=== PATIENT | female | born 1955 | race African-American/Black ===

== ENCOUNTER 2016-11-09 14:03 | Inpatient (IN) | payer OTHER ==
[~2016-11-09] VITALS: Ht 170.2 cm; Wt 88.0 kg
[~2016-11-09 14:03] MED LIST: ASPI81CT89 PO; ATOR20TA PO; ISOS10TA9 PO; METO25TA PO; NITR0.4T2 SL; ORE25 PO; SIMV20TA1 PO
[2016-11-09 14:33] VITALS: BP 136/87
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
[2016-11-09] MEDS ORDERED: ONDANSETRON 4 MG/2 ML VIAL IVP ONE (15:25)
[2016-11-09] MEDS ORDERED: oxyCODONE/APAP 5/325 MG 1 TAB TAB PO ONE (15:25)
[2016-11-09] MEDS ORDERED: ASPIRIN 81 MG TAB.CHEW PO ONE (15:25)
[2016-11-09 16:07] LABS: BASOPHILS # (AUTO) 0.3 K/uL (0.00-0.22); EOSINOPHILS # (AUTO) 0.1 K/uL (0-0.4); HEMATOCRIT 44.1 % (36-48); HEMOGLOBIN 14.4 g/dL (12.0-16.0); LYMPHOCYTES # (AUTO) 2.1 K/uL (2.5-16.5); MEAN CORPUSCULAR HEMOGLOBIN 34 pg (27-31); MEAN CORPUSCULAR HGB CONC 33 g/dL (33-37); MEAN CORPUSCULAR VOLUME 104 fL (80-94); MONOCYTES # (AUTO) 0.4 K/uL (0.8-1.0); NEUTROPHILS # (AUTO) 3.3 K/uL (1.8-7.7); PLATELET COUNT (AUTO) 170 K/uL (140-450); RED BLOOD CELL COUNT(AUTO) 4.26 MIL/uL (4.20-5.40); RED CELL DISTRIBUTION WIDTH 13.9 % (11.6-13.7); WHITE BLOOD COUNT (AUTO) 6.2 K/uL (4.8-10.8)
[2016-11-09 16:13] LABS: ANION GAP 14.7 (8-16); CALCIUM 8.8 mg/dL (8.5-10.1); CARBON DIOXIDE 28.2 mmol/L (21-32); CREATININE 0.9 mg/dL (0.6-1.3); POTASSIUM 3.9 mmol/L (3.5-5.1)
[2016-11-09 16:16] LABS: INR 1.2 (0.8-1.2); PARTIAL THROMBOPLASTIN TIME 23.2 secs (22-35.6); PROTHROMBIN TIME 10.9 secs (10.8-13.4)
[2016-11-09 16:18] LABS: ALBUMIN 4.2 g/dL (3.4-5.0); TOTAL BILIRUBIN 0.3 mg/dL (0.0-1.0); TOTAL PROTEIN, SERUM 7.8 g/dL (6.4-8.2)
[2016-11-09] MEDS ORDERED: NITROGLYCERIN 0.4 MG TAB SL ONE (17:15)
[2016-11-09] MEDS ORDERED: MORPHINE SULFATE 2 MG/ML SYR IVP PRN (17:15)
[2016-11-09] MEDS ORDERED: LORazepam 2 MG/ML VIAL IVP PRN (17:15)
[2016-11-09] MEDS ORDERED: ZOLPIDEM 5 MG TAB PO PRN (17:15)
[2016-11-09] MEDS ORDERED: ACETAMINOPHEN 325 MG TAB PO PRN (17:15)
[2016-11-09] MEDS ORDERED: NITROGLYCERIN 2% 1 GM PKT TP ONE (17:15)
[2016-11-09] MEDS ORDERED: ONDANSETRON 4 MG/2 ML VIAL IVP PRN (17:15)
[2016-11-09] MEDS ORDERED: NITROGLYCERIN 0.4 MG TAB SL PRN (17:20)
--- NOTE | 2016-11-09 17:46 | NUR ---
Patient will be admitted to care of DR AMES. Admited to TELE. Will go to room 106B. Belongings list completed. Report to SHAQUILLE LEIVA.
[2016-11-09 18:19] VITALS: BP 155/92
--- NOTE | 2016-11-09 18:27 | NUR ---
PT ON UNIT. NO S/S OF ACUTE DISTRESS. PT DENIES PAIN. IV SITE PATENT AND INTACT. AAOX4. CALL LIGHT WITHIN REACH. SAFETY MEASURES ENSURED. WILL CONTINUE TO MONITOR.
--- NOTE | 2016-11-09 19:31 | NUR ---
ENDORSED PLAN OF CARE TO NIGHT RN. PT REMAINS IN STABLE CONDITION.
--- NOTE | 2016-11-09 19:32 | NUR ---
RECEIVED PT IN STABLE CONDITION FROM SHAQUILLE LEIVA. NO SOB, NO SIGNS OF DISTRESS. PT IS AOX4, AMBULATORY. VS STABLE ON ROOM AIR. PT DENIES PAIN AT THIS TIME. IV TO RT AC 20G PATENT, ASYMPTOMATIC, INTACT, SALINE LOCKED. SKIN IS INTACT. ORIENTED PT TO ROOM AND UNIT. PLAN OF CARE DISCUSSED WITH PT. SAFETY MEASURES IN PLACE. CALL LIGHT WITHIN REACH. WILL CONTINUE TO MONITOR.
--- NOTE | 2016-11-09 19:55 | NUR ---
PT C/O ANXIETY. WILL MEDICATE PER MD ORDER.
[2016-11-09 20:00] VITALS: BP 101/78
[2016-11-09] MEDS ORDERED: METOPROLOL 25 MG TAB PO SCH (21:00)
[2016-11-09] MEDS ORDERED: ISOSORBIDE DINITRATE 10 MG TAB PO SCH (21:00)
--- NOTE | 2016-11-09 21:12 | NUR ---
FOUND PT WALKING OFF OF UNIT DRESSED IN HER CLOTHES WITH HER BELONGINGS AND IV AND ARM BAND IN PLACE. PT ON PHONE CALLING FOR A RIDE HOME. WALKED AFTER PATIENT, ASKED HER IF SHE WAS OK AND WHY SHE WAS LEAVING. PT BECAME AGITATED STATED "I DON'T WANT TO BE HERE NO MORE I'M LEAVING." ATTEMPTED TO PROVIDE EMOTIONAL SUPPORT AND TELL PT I HAD MEDICINE TO HELP CALM HER ANXIETY, PT REFUSED AND STATED SHE STILL WANTED TO LEAVE. FOLLOWED PT OUT TO [facility] WITH [employer] AND SECURITY, EDUCATED PT THAT IT WOULD BE SAFE FOR HER IF WE TOOK OUT THE IV AND HER ARM BAND, PT AGREED. TOOK OFF ARM BAND AND IV. ALSO REMOVED NITRO PATCH TO CHEST. TOLD PT TO APPLY PRESSURE TO IV SITE, PT WALKED OFF THEN IMMEDIATELY CAME BACK WITH ARM BLEEDING. APPLIED PRESSURE TO IV SITE, GAVE PT TISSUES AND ALCOHOL PREP PADS AND EDUCATED PT TO APPLY PRESSURE TO IV SITE FOR 5 MINS TO STOP BLEEDING, PT STATED "OK." ASKED PT IF SHE WOULD LIKE TO COME INSIDE TO LET US TREAT HER AND APPLY A PROPER DRESSING AND CLEAN IV SITE. PT STATED SHE DID NOT WANT US TO TOUCH HER ANYMORE AND SHE'S LEAVING. PHOTO MASK CLEANER ASKED PT IF SHE WAS OK AND ATTEMPTED TO EDUCATE PT ON GETTING TREATED AND RETURNING SO WE COULD RESOLVE WHATEVER ISSUES SHE HAD OR SIGNING AMA, PT STATED SHE IS FINE AND STILL REFUSED TO RETURN TO HOSPITAL. PT WALKED OFF TO [facility]. WILL MAKE AWARE.
--- NOTE | 2016-11-09 21:56 | NUR ---
PAGED MD RAMACHANDRAN FIRER LOW PRESSURE FOR MD AMES. WAITING FOR CALL BACK.
--- NOTE | 2016-11-09 21:58 | NUR ---
SPOKE WITH MD RAMACHANDRAN. MADE AWARE THAT PT LEFT [facility] WITHOUT SIGNING AMA. STATED HE WILL LET MD AMES KNOW.
[2016-11-10] MEDS ORDERED: ASPIRIN 81 MG TAB.CHEW PO SCH (09:00)
[2016-11-10] MEDS ORDERED: HYDROCHLOROTHIAZIDE 25 MG TAB PO SCH (09:00)
[2016-11-10] MEDS ORDERED: SIMVASTATIN 20 MG TAB PO SCH (09:00)
[2016-11-10] MEDS ORDERED: ATORVASTATIN 20 MG TAB PO SCH (09:00)
[2016-11-10] MEDS ORDERED: ENOXAPARIN 40 MG/0.4 ML SYR SUBQ SCH (09:00)
--- NOTE | 2016-11-10 13:19 | NUR ---
CM NOTE RETRO REVIEW FAXED TO [facility] / FAX# [phone], ATTN: SHRAVAN #[phone]
== END 2016-11-09 21:12 | disposition left against medical advice (07) | DRG 384 ==
LOC: MED 14:03 → MTU 17:34
PROVIDERS: ADMIT Hospitalist; ATTEND Hospitalist
DX: S20.219A Contusion of unspecified front wall of thorax, initial encounter (principal); I20.0 Unstable angina; I10 Essential (primary) hypertension; E11.9 Type 2 diabetes mellitus without complications; Z53.21 Procedure and treatment not carried out due to patient leaving prior to being seen by health care provider; I25.2 Old myocardial infarction; Z95.1 Presence of aortocoronary bypass graft; V89.2XXA Person injured in unspecified motor-vehicle accident, traffic, initial encounter; W22.10XA Striking against or struck by unspecified automobile airbag, initial encounter; Y93.I9 Activity, other involving external motion; Y92.488 Other paved roadways as the place of occurrence of the external cause
CPT/HCPCS: 36415; 71010; 80053; 83880; 84484; 85025; 85610; 85730; 87081; 93005; 96374; 99285; J2060; J2270; J2405; Q0092